=== PATIENT | female | born 1990 | race Caucasian/White ===

== ENCOUNTER 2017-03-31 08:17 | Observation (INO) | payer MEDICAID, OTHER ==
[2017-03-31 08:15] VITALS: BP 110/66; PULSE 108; RESP 20
[2017-03-31 08:47] VITALS: BP 132/72; PULSE 130
[2017-03-31 08:52] VITALS: BP 120/70; PULSE 100
[2017-03-31 09:22] VITALS: BP 122/72; PULSE 126; RESP 20
[2017-03-31 09:50] VITALS: PULSE 108
[2017-03-31] MEDS ORDERED: Carboprost 250 mCg/mL Inj IM PRN (09:55)
[2017-03-31] MEDS ORDERED: Lactated Ringer's 1,000 ML IV SCH (09:55)
[2017-03-31] MEDS ORDERED: Oxytocin 10 Unit/mL Inj IM PRN (09:55)
[2017-03-31] MEDS ORDERED: Witch Hazel-Glycerin Pads TOPICAL PRN (09:55)
[2017-03-31] MEDS ORDERED: LANOlin HPA 7 Gm Ointment TOPICAL PRN (09:55)
[2017-03-31] MEDS ORDERED: Hemorrhage Kit, Post Partum XX ONE (09:55)
[2017-03-31] MEDS ORDERED: Benzocaine (Dermoplast) 20% 60 Gm Spray TOPICAL PRN (09:55)
[2017-03-31] MEDS ORDERED: oxyCODONE-Acetamin 5-325 mg Tablet PO PRN (09:55)
[2017-03-31] MEDS ORDERED: HYDROcodone-APAP 5-325 mg Tablet PO PRN (09:55)
[2017-03-31] MEDS ORDERED: Methylergonovine 0.2 mg/mL Inj IM PRN (09:55)
--- NOTE | 2017-03-31 10:04 | PCM.HPOB ---
Subjective Date of Service: Mar 31, 2017 Referring Provider: Admitting Physician: Cheko Uriostegui MD Primary Care Physician: Lena Keen CNM Attending Physician: Cheko Uriostegui MD Chief Complaint 3rd degree perineal laceration History of Present OB History: (2), Para (2) Obstetrical Complications: None Past Medical History Obstetrical History: Prior vaginal delivery x 1 with 3rd degree tear with that delivery Gynecologic History: n/c Medical History: Sinus tachycardia with normal echo Surgical History: N/C Social History: Here with family. No illicit drug use. Hx Tobacco Use: No Hx Alcohol Use: No Past Family History Living Arrangement: with Family Review of Systems Constitutional: Y: Change of appitite Eyes: Denies: Blurred Vision Cardiovascular: Denies: Chest Pain Respiratory: Denies: Cough Gastrointestinal: Denies: Abdominal Pain Genitourinary: Denies: Dysuria Skin/Breasts: Denies: Bruising Endocrine: Denies: Diaphoresis Hematologic: Denies: Abnormal bleeding Medications Home medications PNV Allergy Coded Allergies: No Known Allergies (Unverified , 03/31/17) Exam Vital Signs Vital Signs Date Time Temp Pulse Resp B/P Pulse Ox O2 Delivery O2 Flow Rate FiO2 03/31/17 09:22 126 20 122/72 Room Air 03/31/17 08:52 100 120/70 03/31/17 08:47 130 132/72 03/31/17 08:15 36.6 108 20 110/66 Room Air Constitutional: Well-developed Lungs: Clear to Auscultation Heart: Exam Unremarkable, Regular Rate/Rhythm Abdomen: No tenderness Lymphatic: Normal: Neck Palpation of Nodes Extremities: Pulses Palpable x4 Skin: Rashes (none) Neurological/Psychiatric: Alert, Oriented X3 Neuro: Grossly Neurologically Intact Gynecologic: Normal: Adnexa/Parametria, Bladder, Cervix, Urethral Meatus, Uterus, Abnormal: Anus/Perineum (3rd degree tear), External Genitalia (3rd degree perineal tear), Rectal (partial rectal capsule tear), Vagina/Pelvic Support OB Intrapartum Assessment/Plan Problems: (1) Third-degree perineal laceration during delivery, delivered Plan: Local anesthesia with standard repair in the room with standard OB set up. Status: Acute ICD Code: O70.20 Pain Evaluation: Adequate Pain Control Post plan: Continue routine post care, Anticipate discharge home today Cheko Uriostegui MD Mar 31, 2017 10:04
--- NOTE | 2017-03-31 10:08 | PCM.DC.OB ---
Obstetrical Discharge Summary Date of Service Mar 31, 2017 Date of hospital admission Mar 31, 2017 at 08:17 Date of Discharge: Mar 31, 2017 Providers Admitting Physician: Cheko Uriostegui MD Primary Care Physician: Lena Keen CNM Attending Physician: Cheko Uriostegui MD Problems: (1) Third-degree perineal laceration during delivery, delivered Status: Acute ICD Code: O70.20 Consultations None Invasive procedures Third degree perineal repair Date of Procedure: Mar 31, 2017 Hospital Course: Patient presented from the [facility] with third degree tear. Minimal bleeding. Repaired. Recovered well. No other issues. Discharged back to merchandise executive care. Disposition Home Follow-up plan F/u with nurse merchandise executive per their protocol. Discharge Activity-General: Pelvic Rest for 6 weeks, Try not to overdue, Be up and about, Activity as pain allows, No lifting >15 pounds for 2 weeks copies to: Lena Keen CNM, David B MD Mar 31, 2017 10:08
--- NOTE | 2017-03-31 10:11 | PCM.DIOB ---
Obstetrical Disch Instruction Date of Service: Mar 31, 2017 Dates of Hospitalization Date of Hospital Admission Mar 31, 2017 at 08:17 Providers Admitting Physician: Cheko Uriostegui MD Primary Care Physician: Lena Keen CNM Attending Physician: Cheko Uriostegui MD Discharge Diagnosis Problems: (1) Third-degree perineal laceration during delivery, delivered Status: Acute ICD Code: O70.20 Diet Discharge Diet: No restrictions Activity Discharge Activity-General: Pelvic Rest for 6 weeks, Be up and about, Balance rest and activity, Activity as pain allows, Activity as energy allows, No lifting >15 pounds for 2 weeks Dressing and Incisional Care Hygiene: May shower after, Perineal care, Sitz bath, Dermoplast spray, Witch Brittney pads Follow Up Plan Follow-up Provider (F9): Michelle Vera CNM Follow-up appointment: Days (1) Call your provider for: Fever or Chills, Heavy vaginal bleeding, Excessive constipation, Vaginal discomfort, Red painful breasts Cheko Uriostegui MD Mar 31, 2017 10:11
[2017-03-31 10:17] VITALS: BP 117/75; PULSE 108; RESP 18
--- NOTE | 2017-03-31 13:43 | OP ---
[address] [address] OPERATIVE REPORT PATIENT: ANDRIA ESQUIVEL : 1990 MR#: [id number] ADMIT: 03/31/2017 JOB ID: [id number] DATE OF SURGERY: 03/31/2017 SURGEON: Cheko Uriostegui MD CLERK STENOGRAPHER: None. PREOPERATIVE DIAGNOSIS(ES): 1. female at term delivered vaginally. 2. Third-degree perineal laceration, status post delivery at [facility]. POSTOPERATIVE DIAGNOSIS(ES): 1. female at term delivered vaginally. 2. Third-degree perineal laceration, status post delivery at [facility]. OPERATION: Third-degree perineal laceration repair. INDICATIONS: Third-degree laceration needing closure. COMPLICATIONS: None. FINDINGS: Third-degree perineal laceration that involves only part of the rectal capsule. ESTIMATED BLOOD LOSS: 10 cc PATHOLOGY: None. ANESTHESIA: Local anesthesia with 15 cc of 1% lidocaine. DETAILS OF PROCEDURE: The patient presented to the [facility] here at [facility] with a third-degree perineal laceration that involved minimal bleeding. She was admitted and placed on a standard delivery bed. The standard delivery setup was pulled for this repair. The patient was given local anesthesia as stated above. The area was cleansed with sterile water. The rectal capsule was found and repaired with 2-0 Vicryl in the usual fashion. Attention was then paid to the second-degree portion of the perineal laceration. This was repaired in the usual fashion but it involved two vaginal apices. The patient's right hand side of this was repaired first followed by the left hand side and then gathered in the middle using 3-0 Vicryl. I then reinforced the hymenal remnant. The deep portions of the vaginal repair went back to a fair depth and were filled in using 3-0 Vicryl in a running fashion as well. The superficial aspects were drawn together using that same 3-0 Vicryl in a running fashion. Once this was done, an area just around the hymenal remnant that was a bit deeper was repaired using 3-0 chromic. This was then brought back into the posterior vagina where this knot was secured and cut. No other repairs were necessary. The patient's periurethral area was doing well. She tolerated procedure well. There were no other complications. Counts correct x2. cc: Michelle Vera CNM, [place] [place].
== END 2017-03-31 14:38 | disposition home or self-care (01) ==
LOC: FBC 08:17
PROVIDERS: ADMIT Family Medicine; ATTEND Family Medicine
DX: O70.20 Third degree perineal laceration during delivery, unspecified (principal); Z3A.41 41 weeks gestation of pregnancy
CPT/HCPCS: 59300; G0378